=== PATIENT | male | born 2000 | race Caucasian/White ===

== ENCOUNTER 2022-04-19 13:44 | Emergency (ER) | payer MEDICAID ==
[~2022-04-19] VITALS: Ht 167.6 cm; Wt 89.1 kg
[2022-04-19 13:59] VITALS: BP 141/73
--- NOTE | 2022-04-19 14:17 | NUR ---
21YO MALE PT C/O EAR DISCOMFORT. PT STATES HE WAS CLEANING EARS WITH EAR SWABS THIS MORNING . PT STATES HE PUSHED THE SWAB TOO FAR INTO EAR AND NOTICED BLOOD ON SWAB. PRIOR TO THIS MORNING , PT STATES HEARING "MUFFLED " OUT OF BOTH EARS. PT STATES HAVING HEADACHE AND HEARING A "POP" WHEN BLOWING NOSE. PT LEFT EAR CANAL PRESENTS WITH DRY BLOOD. DENIES TAKING MEDICATION TO RELIEF DISCOMFORT. PT DENIES SOB, CHEST PAIN OR FEVERS. PT AAOX4. BED AT LOWEST POSITION , BED RAILS UPX2. NKA NMHX
[2022-04-19] MEDS ORDERED: OFLO10SO16 OT (15:57)
[2022-04-19 16:00] VITALS: BP 135/73
--- NOTE | 2022-04-19 16:12 | NUR ---
Patient discharged with v/s stable. Written and verbal after care instructions FOR OTITIS EXTERNA AND EAR IRRIGATION given and explained. Patient alert, oriented and verbalized understanding of instructions. Ambulatory with steady gait. All questions addressed prior to discharge. ID band removed. Patient advised to follow up with PMD. Rx of OFLAXACIN given. Opportunity to ask questions provided and answered.
--- NOTE | 2022-04-19 16:13 | NUR ---
The patient's care was reviewed and supervised by Renea Kaur RN.
== END 2022-04-19 16:12 | disposition home or self-care (01) ==
LOC: MED 13:44
DX: S00.412A Abrasion of left ear, initial encounter (principal); H61.23 Impacted cerumen, bilateral; Z79.2 Long term (current) use of antibiotics; X58.XXXA Exposure to other specified factors, initial encounter; Y92.89 Other specified places as the place of occurrence of the external cause; Y93.89 Activity, other specified; Y99.8 Other external cause status
CPT/HCPCS: 99283